=== PATIENT | female | born 1955 | race Caucasian/White ===

== ENCOUNTER 2016-04-06 15:07 | Day surgery (SDC) | payer OTHER ==
[~2016-04-06] VITALS: Ht 162.6 cm; Wt 59.9 kg
[~2016-04-06 15:07] MED LIST: CITA20TA11 PO; LEVO75TA4 PO; LISI10TA2 PO; LOVA20TA PO; Lactated Ringer's 1,000 ML IV SCH; TRAM50TA2 PO
[2016-04-06] MEDS ORDERED: fentaNYL-PF 50 mCg/mL 2 mL Inj ONE (15:08)
[2016-04-06] MEDS ORDERED: Ketamine 10 mg/mL 20 mL Inj ONE (15:08)
[2016-04-06 15:32] VITALS: BP 131/85; PULSE 93; RESP 16; O2SAT 99
[2016-04-06] MEDS ORDERED: CYCL10TA9 PO (15:48)
[2016-04-06] MEDS ORDERED: MetoCLOpramide 5 mg/mL 2 mL Inj IVPUSH PRN (15:55)
[2016-04-06] MEDS ORDERED: Ondansetron 2 mg/mL 2 mL Inj IVPUSH PRN (15:55)
[2016-04-06] MEDS: Lactated Ringer's 1,000 ML IV SCH ×3 (15:56→16:40)
[2016-04-06 16:04] VITALS: BP 133/81; PULSE 88; RESP 15; O2SAT 98
[2016-04-06 16:44] VITALS: BP 126/73; PULSE 75; RESP 15; O2SAT 96
--- NOTE | 2016-04-06 16:44 | PCM.HPANE ---
Patient Data Surgeon Admitting Provider: Attending Provider:Doe Good MD Primary Care Physician:Tram Medina PA-C Other Provider:Russ Walker Anesthesia Reason for Visit Screening Ht/WT & BMI Height (Feet): 5 Height (Inches): 4 Weight (Kilograms): 59.87 Body Mass Index 22.00 Allergies Coded Allergies: Cephalosporins (Verified Allergy, Severe, 04/06/16) latex (Verified Allergy, Severe, 04/06/16) Sulfa (Sulfonamide Antibiotics) (Verified Allergy, Intermediate, SOB RASH , 04/06/16) Past Anesthesia History Anesthesia History: Denies:: Abnormal Airway, Anesthesia Reactions, Difficult Intubation, Fam Anesthesia Reaction, Fam Malignant Hypertherm, Malignant Hyperthermia Diabetes History Hx Diabetes?: No MRSA MRSA: No Medications Hypertension Medication: Yes Home Meds Incl Beta Geovany: No Reported Medications Cyclobenzaprine 10 Mg Trnhss45 Mg PO TID PRN Spasm 04/06/16 Levothyroxine 75 Mcg Iafwwh36 Mcg PO DAILY 30 Days Ref 0 01/14/14 Tramadol 50 Mg Ffrpun00 Mg PO Q6 PRN For Pain Ref 0 01/14/14 Citalopram 20 Mg Hgohrc78 Mg PO DAILY 30 Days Ref 0 01/14/14 Lovastatin 20 Mg Qcaeza22 Mg PO HS #30 TABLET Ref 0 01/14/14 Lisinopril 10 Mg Tbisof58 Mg PO DAILY 30 Days Ref 0 01/14/14 History History of ENT Problems?: Yes HEENT History: Positive for:: Sinus Problem Denies:: Abnormal Airway Difficult Intubation Dysphagia Hx of Heart Problems?: Yes Cardiovascular History: Positive for:: Hypertension Denies:: AICD Atrial Fibrillation Chest Pain Pacemaker Valvular Heart Disease Hx of Respiratory Problem?: No Hx Neurologic Problems?: No Neurological History: Denies:: CVA Hx of GI Problems?: Yes Gastrointestinal History: Denies:: Cirrhosis Diverticulitis Gall Bladder Disease Gastroesphageal Reflux Hiatal Hernia Liver Disease Rectal Bleeding Hx of Problems?: No Female Hx: Denies:: Currently Hx Musculoskeletal Problems?: Yes Musculoskeletal History: Positive for:: Fibromyalgia Musculoskeletal Trauma (rt knee meniscus tear) Denies:: Joint Replacement Hx of Psycho/Social Problems?: Yes Psycho Social History: Positive for:: Anxiety (MANAGED) Hx Depression (MANAGED) Hx Surgeries?: Yes (MINICUS TEAR REPAIR) Hx Any Other Health Problems?: Yes Other History: Positive for:: Thyroid Disease (hypo) Hx Diabetes: No Hx Alcohol Use: Yes (OCCASIONAL) Smoking Status: Current Every Day Smoker Have You Smoked inLast 12 mo: Yes Stop/Bang Treated for Sleep Apnea?: No Do You Have a CPAP Machine?: No S-Snoring: Do You Snore Loudly: No T-Tired: feel tired, fatigued: No O-Obsered: Observed not breath: No P-Blood Pressure: treated: Yes B- Body Mass Index > 35 kg/m2: No A- Age over 50: Yes N- Neck Large Circumference: No G- Gender Male: No SANJUANA Total Score: 2 SANJUANA Risk Assessment: Low Risk, <3 Yes Risk Assessment Category Category 1A: Patient has history of documented sleep apnea, and HAS NOT received any narcotic, sedative or anesthesia administration during this stay. Category 1B: Patient has history of documented sleep apnea, and HAS received any narcotic , sedative or anesthesia administration during this stay Category 2: Patient has SUSPECTED Obstructive Sleep Apnea, and HAS received any narcotic , sedative or anesthesia administration during this stay. Category 3: Patient has SUSPECTED Obstructive Sleep Apnea and HAS NOT received narcotic, sedative or anesthesia administration during this stay. Category 4: Outpatient in Procedural Areas with known sleep apnea or who screen positive for High Risk via the STOP/BANG questionnaire. Exam Exam Vital Signs Vital Signs Date Time Temp Pulse Resp B/P Pulse Ox O2 Delivery O2 Flow Rate FiO2 04/06/16 15:32 36.7 93 16 131/85 99 Room Air General Appearance: Alert, Oriented X3, Cooperative, No Acute Distress HEENT/AIRWAY: MP 2 Lungs: Clear to Auscultation, Normal Air Movement Heart: Exam Unremarkable, Regular Rate/Rhythm, No Murmurs/Rubs/Gallops Meds/Labs/Diagnostics Admission Meds Current Medications Lactated Ringer's (Lr) 1,000 ml @ 120 mls/hr Q8H20M IV Last administered on t 16:04; Start 04/06/16 at 15:51; Stop 04/06/16 at 23:50 Plan Impression Patient chart reviewed, patient interviewed and anesthestic plan with risks, benefits, and alternatives discussed, and informed consent obtained. NPO Status: 01/14/14 ASA Physical Status: ASA2 Mod Systemic Disease Anesthetic Plan: MAC Bene/Risks/Altern/Consents: Yes HP Complete Prior to Induction: Yes Tom Ortiz MD Apr 06, 2016 16:44
[2016-04-06 16:54] VITALS: BP 149/92; PULSE 78; RESP 15; O2SAT 97
--- NOTE | 2016-04-06 17:27 | ENDO ---
[address] [address] ENDOSCOPY PROCEDURE PATIENT: GRETEL KRAFT : 1955 MR#: [id number] ADMIT: 04/06/2016 JOB ID: [id number] PROCEDURE: Colonoscopy. INDICATIONS FOR COLONOSCOPY: Screening. The patient states ASA classification, Mallampati score and medications as per Dr. Tom Ortiz's anesthesia report. INSTRUMENT USED: PCF H 180 AL. PREPARATION QUALITY: Good. PROCEDURE DETAILS: After informed consent was obtained, the patient was brought to the GI suite, where she was placed on oxygen via nasal cannula and monitored with continuous pulse oximeter, telemetry, and blood pressure monitoring. A time-out was performed. Then, she was placed in the left lateral decubitus position and medications were administered for sedation. Digital rectal exam was performed which was unremarkable. The colonoscope was then inserted into the rectum and advanced under direct visualization to the cecum which was identified by the presence of the ileocecal valve and appendiceal orifice. Once the cecum was reached, the colonoscope was withdrawn back into the rectum and the mucosa and lumen were examined. In the rectum, retroflexion was performed. Following retroflexion, remaining air in the rectum was suctioned and procedure was completed. FINDINGS: 1. In the cecum, there was an approximately 8 mm flat polyp that was lifted using normal saline and then removed in a single piece with a hot snare. The underlying mucosal defect was approximated with placement of one [place] clip. 2. On the IC valve, there was an approximately 3-4 mm clean-based ulcer that was biopsied. 3. I was unsuccessful in intubating the terminal ileum despite multiple attempts. 4. In the ascending colon, there was an approximately 6 mm sessile polyp that was removed with a hot snare. 5. There was also a diminutive polyp that was removed with cold biopsy forceps. 6. In the transverse colon, there was a diminutive polyp that was removed with cold biopsy forceps. 7. In the sigmoid colon, there was a diminutive polyp that was removed with cold biopsy forceps. 8. Retroflexed views in the rectum were unremarkable. IMPRESSION: 1. One cecal polyp. 2. Ileocecal valve ulcer. 3. Two ascending colon polyps. 4. One transverse colon polyp. 5. One sigmoid polyp. RECOMMENDATIONS: 1. Avoid NSAIDs and anticoagulants for 72 hours. 2. Avoid NSAIDs if able. 3. Repeat colonoscopy pending polyp pathology results. 4. Follow up in GI clinic as scheduled. COMPLICATIONS: None. ESTIMATED BLOOD LOSS: Less than 5 mL.
--- NOTE | 2016-04-06 19:43 | PCM.ANEP1 ---
Post Anesthesia Phase 1 PACU Phase 1 Assessment Vital Signs Vital Signs Date Time Temp Pulse Resp B/P Pulse Ox O2 Delivery O2 Flow Rate FiO2 04/06/16 16:54 78 15 149/92 97 Room Air 04/06/16 16:44 75 15 126/73 96 Room Air 04/06/16 16:04 36.1 88 15 133/81 98 Room Air 04/06/16 15:32 36.7 93 16 131/85 99 Room Air Anesthetic Administered: MAC Level of Alertness: Awake, talking ALVAREZ's with Equal Strength: Yes Pain: No Nausea or Vomiting: No Oxygen Delivery: Nasal Cannula Lungs: Clear to Auscultation, Normal Air Movement Dermatome Level: Full Sensation Tom Ortiz MD Apr 06, 2016 19:43
--- NOTE | 2016-04-06 19:44 | PCM.ANEP2 ---
Post Anesthesia Evaluation ASA/CMS Post Anesthesia VS in Patient's Normal Range?: Yes Resp Stable; Airway Patent?: Yes CV Function & Hydration Stable: Yes Mental Status Recovered?: Yes Pain control Satisfactory?: Yes N/V Control Satisfactory?: Yes Tom Ortiz MD Apr 06, 2016 19:44
--- NOTE | 2016-04-10 14:22 | PATH ---
SURGICAL PATHOLOGY Attending Physician:Rosendo Gutiérrez CASE STATUS: Signed Out PATIENT NAME: GRETEL KRAFT PID: [id number] : 1955 DATE COLLECTED:04/06/2016 00:00 SPECIMEN: 1: Colon, Biopsy 2: Colon, Biopsy 3: Colon, Biopsy 4: Colon, Biopsy 5: Colon, Biopsy CLINICAL HISTORY: SCREENING, COLON POLYPS 1). ILEOCECAL VALVE ULCER BIOPSY 2). CECAL POLYP 3). ASCENDING POLYP 4). TRANSVERSE POLYP 5). SIGMOID POLYP FINAL DIAGNOSIS: 1.ILEOCECAL VALVE ULCER, BIOPSY: MILD, ACTIVE COLITIS WITHOUT DISTORTION OF THE GLANDULAR ARCHITECTURE. Negative for granulomas, malignancy and dysplasia. 2.CECAL POLYP: SESSILE SERRATED ADENOMA. 3.ASCENDING COLON POLYP: SESSILE SERRATED ADENOMA. 4.TRANSVERSE COLON POLYP: BENIGN COLONIC MUCOSA CONSISTENT WITH POLYPOID REDUNDANCY. No evidence of malignancy or dysplasia. 5.SIGMOID COLON POLYP: HYPERPLASTIC POLYP. ICD10 CODE D12.6 GROSS DESCRIPTION: Received are five formalin-filled containers, each labeled with the patient' s name. 1. Received in formalin, labeled with the patient' s name and "IC valve biopsy", are two fragments of lyons, soft tissue ranging in size from 0.1 x 0.1 x 0.1 cm to 0.2 x 0.1 x 0.1 cm. All fragments are totally submitted in cassette 1A. 2. Received in formalin, labeled with the patient' s name and "cecal biopsy", is one polypoid tissue fragment measuring 0.7 x 0.7 x 0.4 cm. The fragment is divided and totally submitted in cassette 2A. 3. Received in formalin, labeled with the patient' s name and "ascending polyp", are four fragments of lyons, soft tissue ranging in size from 0.1 x 0.1 x 0.1 cm to 0.5 x 0.4 x 0.3 cm. The larger fragment is divided, and all fragments are totally submitted in cassette 3A. 4. Received in formalin, labeled with the patient' s name and "transverse polyp", is one fragment of lyons, soft tissue measuring 0.1 x 0.1 x 0.1 cm. The fragment is totally submitted in cassette 4A. 5. Received in formalin, labeled with the patient' s name and "sigmoid polyp", are two fragments of lyons, soft tissue ranging in size from 0.1 x 0.1 x 0.1 cm to 0.2 x 0.1 x 0.1 cm. All fragments are totally submitted in cassette 5A. ([id number]) MICRO DESCRIPTION: See diagnosis. ICD-9 CODES: CPT CODES: 1: 57304 2: 14647 3: 34034 4: 92292 5: 50828 Electronically Signed Out Caleb Paris MD [facility] [address], [place] [address] Technical component performed at [facility], [facility] [address], [place], [address]
[2016-05-03] MEDS ORDERED: LISI10TA PO (14:45)
== END 2016-04-06 23:59 | disposition home or self-care (01) ==
LOC: END 15:07
PROVIDERS: ATTEND Internal Medicine Gastroenterology
DX: Z12.11 Encounter for screening for malignant neoplasm of colon (principal); D12.0 Benign neoplasm of cecum; D12.2 Benign neoplasm of ascending colon; K52.9 Noninfective gastroenteritis and colitis, unspecified; K63.5 Polyp of colon; K63.3 Ulcer of intestine; K86.89 Other specified diseases of pancreas; F17.210 Nicotine dependence, cigarettes, uncomplicated; F10.10 Alcohol abuse, uncomplicated; F32.9 Major depressive disorder, single episode, unspecified; F41.9 Anxiety disorder, unspecified; G89.29 Other chronic pain; E03.9 Hypothyroidism, unspecified; I10 Essential (primary) hypertension; E78.5 Hyperlipidemia, unspecified; M79.7 Fibromyalgia; E78.00 Pure hypercholesterolemia, unspecified
CPT/HCPCS: 45380; 45381; 45385; 88305; J2250; J3010; J7120

== ENCOUNTER 2016-05-04 12:55 | Day surgery (SDC) | payer OTHER ==
[~2016-05-04] VITALS: Ht 162.6 cm; Wt 59.9 kg
[~2016-05-04 12:55] MED LIST changes: +CYCL10TA9 PO; +LISI10TA PO; -LISI10TA2 PO; +Lactated Ringer's 1,000 ML IV ONE; -Lactated Ringer's 1,000 ML IV SCH; -TRAM50TA2 PO
[2016-05-04] MEDS ORDERED: Propofol 10,000 mCg/mL 20 mL Inj ONE (12:56)
[2016-05-04 13:26] VITALS: BP 119/79; PULSE 85; RESP 14; O2SAT 100
[2016-05-04] MEDS ORDERED: Lactated Ringer's 1,000 ML IV SCH (14:34)
--- NOTE | 2016-05-04 14:34 | PCM.HPANE ---
Patient Data Surgeon Admitting Provider: Attending Provider:Doe Good MD Primary Care Physician:Tram Medina PA-C Other Provider:Russ Walker Anesthesia Reason for Visit Congenital Malformations Of Pancreas Ht/WT & BMI Height (Feet): 5 Height (Inches): 4 Weight (Kilograms): 59.87 Body Mass Index 22.00 Allergies Coded Allergies: Cephalosporins (Verified Allergy, Severe, 04/06/16) latex (Verified Allergy, Severe, 04/06/16) Sulfa (Sulfonamide Antibiotics) (Verified Allergy, Intermediate, SOB RASH , 04/06/16) Past Anesthesia History Anesthesia History: Denies:: Abnormal Airway, Anesthesia Reactions, Difficult Intubation, Fam Anesthesia Reaction, Fam Malignant Hypertherm, Malignant Hyperthermia Diabetes History Hx Diabetes?: No MRSA MRSA: No Medications Home Meds Incl Beta Geovany: No Reported Medications Lisinopril 10 Mg Bzzgyd03 Mg PO DAILY 30 Days Ref 0 05/03/16 Cyclobenzaprine 10 Mg Ogtkcf81 Mg PO TID PRN Spasm 04/06/16 Levothyroxine 75 Mcg Xavkzf10 Mcg PO DAILY 30 Days Ref 0 01/14/14 Citalopram 20 Mg Unubrw77 Mg PO DAILY 30 Days Ref 0 01/14/14 Lovastatin 20 Mg Fwnkem43 Mg PO HS #30 TABLET Ref 0 01/14/14 Discontinued Reported Medications Tramadol 50 Mg Ydifpl64 Mg PO Q6 PRN For Pain Ref 0 01/14/14 Lisinopril 10 Mg Zvczef19 Mg PO DAILY 30 Days Ref 0 01/14/14 History History of ENT Problems?: Yes HEENT History: Positive for:: Sinus Problem Denies:: Abnormal Airway Difficult Intubation Dysphagia Hearing Problem Hx of Heart Problems?: Yes Cardiovascular History: Positive for:: Hypertension Denies:: AICD Atrial Fibrillation Chest Pain Pacemaker Valvular Heart Disease Hx of Respiratory Problem?: Yes Respiratory History: Denies:: Asthma COPD Cough Hemoptysis Pneumonia Tuberculosis Other Resp Pertinent History: HX OF DAILY SMOKER, LIGHT Hx Neurologic Problems?: No Neurological History: Denies:: CVA Hx of GI Problems?: Yes Gastrointestinal History: Denies:: Cirrhosis Diverticulitis Gall Bladder Disease Gastroesphageal Reflux Hiatal Hernia Liver Disease Rectal Bleeding Other GI Pertinent History: HX OF PANCREATIC MASS Hx of Problems?: No Female Hx: Denies:: Currently Hx Musculoskeletal Problems?: Yes Musculoskeletal History: Positive for:: Fibromyalgia Joint Replacement (R PARTIAL KNEE) Musculoskeletal Trauma (rt knee meniscus tear) Hx of Psycho/Social Problems?: Yes Psycho Social History: Positive for:: Anxiety Hx Depression Hx Surgeries?: Yes (R PARTIAL KNEE) Hx Any Other Health Problems?: Yes Other History: Positive for:: Thyroid Disease (hypo) Hx Diabetes: No Hx Alcohol Use: Yes Smoking Status: Current Every Day Smoker Have You Smoked inLast 12 mo: Yes Stop/Bang Treated for Sleep Apnea?: No Do You Have a CPAP Machine?: No S-Snoring: Do You Snore Loudly: No T-Tired: feel tired, fatigued: No O-Obsered: Observed not breath: No P-Blood Pressure: treated: Yes B- Body Mass Index > 35 kg/m2: No A- Age over 50: Yes N- Neck Large Circumference: No G- Gender Male: No SANJUANA Total Score: 2 SANJUANA Risk Assessment: Low Risk, <3 Yes Risk Assessment Category Category 1A: Patient has history of documented sleep apnea, and HAS NOT received any narcotic, sedative or anesthesia administration during this stay. Category 1B: Patient has history of documented sleep apnea, and HAS received any narcotic , sedative or anesthesia administration during this stay Category 2: Patient has SUSPECTED Obstructive Sleep Apnea, and HAS received any narcotic , sedative or anesthesia administration during this stay. Category 3: Patient has SUSPECTED Obstructive Sleep Apnea and HAS NOT received narcotic, sedative or anesthesia administration during this stay. Category 4: Outpatient in Procedural Areas with known sleep apnea or who screen positive for High Risk via the STOP/BANG questionnaire. Exam Exam Vital Signs Vital Signs Date Time Temp Pulse Resp B/P Pulse Ox O2 Delivery O2 Flow Rate FiO2 05/04/16 13:26 36. 85 14 119/79 100 Room Air General Appearance: Oriented X3 HEENT/AIRWAY: MP 2 Lungs: Normal Air Movement Heart: Regular Rate/Rhythm Plan Impression Patient chart reviewed, patient interviewed and anesthestic plan with risks, benefits, and alternatives discussed, and informed consent obtained. NPO Status: 01/14/14 Lester Reyez MD May 04, 2016 14:34
[2016-05-04] MEDS ORDERED: Ondansetron 2 mg/mL 2 mL Inj IVPUSH PRN (14:35)
[2016-05-04] MEDS ORDERED: MetoCLOpramide 5 mg/mL 2 mL Inj IVPUSH PRN (14:35)
[2016-05-04 15:41] VITALS: BP 100/68; PULSE 78; RESP 14; O2SAT 98
--- NOTE | 2016-05-04 15:49 | PCM.ANEP1 ---
Post Anesthesia Phase 1 PACU Phase 1 Assessment Vital Signs Vital Signs Date Time Temp Pulse Resp B/P Pulse Ox O2 Delivery O2 Flow Rate FiO2 05/04/16 15:41 36.2 78 14 100/68 98 Room Air 05/04/16 13:26 36. 85 14 119/79 100 Room Air Anesthetic Administered: MAC Level of Alertness: Awake, talking Pain: No Nausea or Vomiting: No Oxygen Delivery: Room Air Lungs: Normal Air Movement Lester Reyez MD May 04, 2016 15:49
--- NOTE | 2016-05-04 15:49 | PCM.ANEP2 ---
Post Anesthesia Evaluation ASA/CMS Post Anesthesia VS in Patient's Normal Range?: Yes Resp Stable; Airway Patent?: Yes CV Function & Hydration Stable: Yes Mental Status Recovered?: Yes Pain control Satisfactory?: Yes N/V Control Satisfactory?: Yes Lester Reyez MD May 04, 2016 15:49
[2016-05-04 15:51] VITALS: BP 117/80; PULSE 82; RESP 16; O2SAT 97
[2016-05-04 16:04] VITALS: BP 121/70; PULSE 83; O2SAT 98
--- NOTE | 2016-05-04 17:34 | ENDO ---
[address] [address] ENDOSCOPY PROCEDURE PATIENT: GRETEL KRAFT : 1955 MR#: [id number] ADMIT: 05/04/2016 JOB ID: [id number] PROCEDURE: Esophagogastroduodenoscopy. INDICATIONS: Abnormal CT scan which demonstrated pancreatic head calcifications. The patient is without any symptoms of abdominal pain, nausea, vomiting, fevers, chills, weight loss. She has no known history of pancreatitis in the past. She does have a significant alcohol history but states that over the last several years she has curtailed her alcohol use. Please see anesthesia report for details regarding ASA classification, Mallampati score, and medications. INSTRUMENTS USED: GIF H 180 J as well as GF-UCT-180 linear echoendoscope. PROCEDURE DETAILS: After informed consent was obtained, the patient was brought to the GI suite, where she was placed on oxygen via nasal cannula and monitored with continuous pulse oximeter, telemetry, and blood pressure monitoring. A time-out was performed and she was placed in a left lateral decubitus position and medications were administered for sedation. A bite block was placed. The standard EGD scope was inserted through the bite block and advanced under direct visualization to the 2nd portion of the duodenum without difficulty. FINDINGS: Normal exam. The linear echoendoscope was then introduced through the bite block and advanced under direct visualization to the 2nd portion of the duodenum. Linear echo endoscopic images demonstrated the followin. The pancreatic duct measured approximately 3 mm in the head of the pancreas. I was able to follow this to the body of the pancreas and then I had difficulty following the pancreatic duct into the tail. 2. In the head and neck of the pancreas, there were multiple calcifications. 3. No mass lesions were appreciated in the pancreas. 4. The common bile duct measured approximately 4 mm and appeared unremarkable. 5. The gallbladder was visualized and there appeared to be hyperechoic lesion in the gallbladder suggestive of a gallstone. 6. The visualized portions of the left lobe of the liver appeared unremarkable. 7. Celiac axis was seen and appeared normal. 8. The left adrenal gland was identified and appeared unremarkable. IMPRESSION: Calcifications in the head of the pancreas suggestive of chronic pancreatitis. RECOMMENDATIONS: 1. Follow up in GI clinic. 2. Consider checking antinuclear antibody as well as IgG4 level and celiac panel. COMPLICATIONS: None. ESTIMATED BLOOD LOSS: 0.
== END 2016-05-04 23:59 | disposition home or self-care (01) ==
LOC: END 12:55
PROVIDERS: ATTEND Internal Medicine Gastroenterology
DX: K86.1 Other chronic pancreatitis (principal); Q45.3 Other congenital malformations of pancreas and pancreatic duct; I10 Essential (primary) hypertension; F41.9 Anxiety disorder, unspecified; F32.9 Major depressive disorder, single episode, unspecified; E03.9 Hypothyroidism, unspecified; E78.5 Hyperlipidemia, unspecified; M79.7 Fibromyalgia; G89.29 Other chronic pain; E78.00 Pure hypercholesterolemia, unspecified; M19.90 Unspecified osteoarthritis, unspecified site; F10.21 Alcohol dependence, in remission; F17.210 Nicotine dependence, cigarettes, uncomplicated; F12.90 Cannabis use, unspecified, uncomplicated; F11.90 Opioid use, unspecified, uncomplicated; Z96.651 Presence of right artificial knee joint
CPT/HCPCS: 43237; J7120